=== PATIENT | male | born 1985 | race Two or more races ===

== ENCOUNTER 2022-07-14 12:51 | Emergency (ER) | payer MEDICAID, SELFPAY ==
--- NOTE | ~2022-07-14 | XR_ITS ---
EXAMINATION: XR HAND, LEFT CLINICAL INFORMATION: Pain, injury October base of thumb COMPARISON: None available. TECHNIQUE: PA, lateral, and oblique views of the left hand. FINDINGS: No visible acute fracture or dislocation. Alignment is anatomic. Joint spaces are maintained. Ulna negative variance. No erosions or soft tissue calcifications. XR/XR hand LT 2V IMPRESSION: No radiographic evidence of acute fracture or dislocation.
--- NOTE | ~2022-07-14 | XR_ITS ---
EXAMINATION: XR HAND, RIGHT CLINICAL INFORMATION: Thumb laceration. COMPARISON: None available. TECHNIQUE: PA, lateral, and oblique views of the right hand. FINDINGS: Lacerations and soft tissue thickening surrounding the first digit/thumb. Soft tissue thickening and possible laceration surrounding the distal second digit/index finger with a punctate radiopaque body in the ulnar soft tissues of the distal second phalanx, possibly a foreign body. Intra-articular fracture of the radial surface of the distal proximal first phalanx. Carpal rows are maintained. No significant degenerative changes. No erosions or chondrocalcinosis. XR/XR hand RT 2V IMPRESSION: 1. Lacerations and soft tissue thickening surrounding the first digit/thumb and second digit/index finger, with a punctate radiopaque body in the ulnar soft tissues of the distal second phalanx. 2. Intra-articular fracture of the radial surface of the distal aspect of the proximal first phalanx.
--- NOTE | 2022-07-14 13:10 | ED_ITS ---
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 Patient reports his hand got caught between the roopa and the tire and he had to pull it away causing a laceration to the thumb. Patient reports unable to straighten the thumb. No associated numbness, tingling. Unaware of last tetanus shot Related Data Previous Rx's Medication Instructions Recorded cephalexin 500 mg capsule 500 mg PO TID #21 caps 07/14/22 oxycodone 5 mg tablet 5 mg PO Q8H PRN pain #10 tabs 07/14/22 Allergies Allergy/AdvReac Type Severity Reaction Status Date / Time aspirin Allergy Hives Verified 07/14/22 13:34 Review of Systems Review of Systems: Yes all other systems are reviewed and are negative Constitutional: Constitutional: Reports no additional constitutional complain ts, Denies body ache(s), Denies chills, Denies fever(s), Denies headache(s) and Denies weakness Eyes: Eyes: Reports no additional eye complaints and Denies change in vision ENT: Reports system reviewed and no additional complaints, except as documented, Denies dizziness, Denies headache(s), Denies nasal congestion, Denies nasal discharge and Denies neck pain Cardiovascular: Cardiovascular: Reports no additional cardiovascular complaints, Denies chest pain, Denies leg edema and Denies dyspnea Respiratory: Respiratory: Reports no additional respiratory complaints, Denies cough and Denies dyspnea Gastrointestinal: Gastrointestinal: Reports no additional gastrointestinal complaints, Denies abdominal pain, Denies diarrhea, Denies nausea and Denies v omiting Genitourinary: Genitourinary: Denies urinary incontinence Musculoskeletal: Musculoskeletal: Reports no additional musculoskeletal complaints, Denies back pain, Reports arthralgias, Reports joint swelling, Reports limited range of motion, Denies neck pain, Denies numbness and Denies t ingling Integumentary/Breasts: Skin/Breast: Reports system reviewed and no additional complaints, except as docu, Denies rash and Reports wounds Neurologic: Reports system reviewed and no additional complaints, except as documented, Denies Abnormal speech present, Denies dizziness, Denies headache(s), Denies numbness, Denies tingling and Denies weakness [facility] Past Medical History Attestation statement: The following information was validated with the patient. Source: old records reviewed and nursing notes reviewed Social History Social History Advance Directives: No Advance Directives Information Provided: No Physical Exam Vital Signs: Vital Signs: Last Vital Signs Temp 98.0 F 07/14/22 13:28 Pulse 73 07/14/22 13:39 Resp 16 07/14/22 13:39 BP 105/69 07/14/22 13:39 Pulse Ox 98 07/14/22 13:39 O2 Del Method Room Air 07/14/22 13:39 BMI result Body Mass Index 26.6 Const: General: cooperative, healthy appearing, comfortable and no acute distress Orientation/consciousness: patient oriented x3 Limitations: no limitations HEENT: Head: Yes normal to inspection Ears: hearing grossly normal bilaterally General nose exam: Normal external nose present Face and sinus: Yes normal facial exam Mouth: Normal oral and palatal mucosa present Throat: Yes posterior oropharynx normal Eyes: General: appearance normal, both eyes and all related structures Pupils: Equal, round and reactive pupils present Neck: Neck: Yes normal visual inspection Chest: Chest palpation & inspection: normal inspection of the chest Resp: Effort & Inspection: normal respiratory effort Auscultation: clear to auscultation bilaterally Cardio: Rate: regular rate Rhythm: regular rhythm Peripheral pulses: Peripheral pulses 2+ throughout GI: Inspection: Yes normal to inspection Palpation (GI): Soft to palpation and nontender Auscultation: normal bowel sounds Back/Spine/Pelvis: Thoracic/Lumbar Spine: thoracic and lumbar spine normal to inspection Skin: General skin exam: no rashes or lesions noted Neuro: General: patient oriented x3, no focal motor deficits and normal sensation to monofilament Cranial nerves: Yes Equal, round and reactive pupils present Cognition (Neuro): normal cognition Speech: No Abnormal speech present Gait exam (Neuro): Normal gait present Motor exam (neuro): 5/5 motor strength present throughout Extrem: Other: Patient has the thumb held in partial flexion. He is unable to fully extend the digit. He does have a sensation which is intact distally. Approximately 5cm laceration Multiple abrasions noted over the right and left hand additionally. Over the left thenar there is some mild ecchymosis and swelling as well as tenderness with full range of motion. General: Yes normal to inspection Course Course Course Narrative: This wound was repaired with [place]. Unable to visualize tendon in the wound bed for repair. The wound was hand irrigated extensively with saline and betadine. After closure a non stick dressing, foam finger splint with forced extension and wrap were placed. Patient quite anxious during entire procedure. States has anxiety. Received 2mg ativan for procedure as unable to tolerate without. See procedure note. Medications Administered Discontinued Medications Generic Name Dose Route Start Last Admin Trade Name Freq PRN Reason Stop Dose Admin Cephalexin HCl 500 mg 07/14/22 15:01 07/14/22 15:17 Cephalexin 500 Mg Capsule PO 07/14/22 15:02 500 mg ONCE ONE Administration Diphtheria/Tetanus/Acell Pertussis 0.5 ml 07/14/22 13:05 07/14/22 13:47 Diphth,Pertus(Acell),Tet Adult 0.5 Ml Syringe IM 07/14/22 13:06 0.5 ml .ONCE ONE Administration Lidocaine HCl 20 ml 07/14/22 13:05 07/14/22 13:52 Lidocaine Hcl 1 % Mpf 5 Ml Vial SUBCUT 07/14/22 13:06 20 ml ONCE ONE Administration Lorazepam 2 mg 07/14/22 14:12 07/14/22 14:20 Lorazepam 1 Mg Tablet PO 07/14/22 14:13 2 mg ONCE ONE Administration Oxycodone HCl 5 mg 07/14/22 15:01 07/14/22 15:17 Oxycodone Hcl Immed Release 5 Mg Tablet PO 07/14/22 15:02 5 mg ONCE ONE Administration Medical Decision Making Medical Decision Making [facility] Narrative: 36-year-old male left-hand dominant here with right thumb laceration with inability to extend the digit and pain on exam. Also multiple abrasions over the hands. Some slight swelling, ecchymosis and tenderness the left thenar with full range of motion Tetanus is not up-to-date Will obtain x-rays, perform digital block, perform laceration repair Concern for tendon injury, fracture. Will need discussion with Orthopedics Differential Diagnosis Differential Diagnoses: The differential diagnosis associated with the presentation includes Fracture, laceration, tendon injury Consult Healthcare Provider Management of the patient was discussed with: Shuttlecock Assembler Fsyfruvajnw-Vu-Ljug PA-discussed the case with her. Recommend follow-up early next week in the office with hand surgeon Independent Interpretation I performed an independent interpretation of an: Plain X-Ray Interpretation: I independently reviewed the x-ray and agree with radiologist report Radiology Impression Discussion of test interpretation with radiology: I have reviewed the radiologist's reading. Radiologist Impression: [address] [address] XRay Report Signed Patient: Vadim Kurtz MR#: [id number] : 1985 Acct:[id number] Age/Sex: 36 / M ADM Date: 07/14/22 Loc: HO.ED Attending Dr: Ordering Physician: Kelly Rico NP Date of Service: 07/14/22 Procedure(s): XR hand RT 2V Accession Number(s): [id number] cc: Kelly Rico NP~ EXAMINATION: XR HAND, RIGHT CLINICAL INFORMATION: Thumb laceration.? COMPARISON: None available.? TECHNIQUE: PA, lateral, and oblique views of the right hand. FINDINGS: Lacerations and soft tissue thickening surrounding the first digit/thumb. Soft tissue thickening and possible laceration surrounding the distal second digit/index finger with a punctate radiopaque body in the ulnar soft tissues of the distal second phalanx, possibly a foreign body. Intra-articular fracture of the radial surface of the distal proximal first phalanx. Carpal rows are maintained. No significant degenerative changes. No erosions or chondrocalcinosis.? XR/XR hand RT 2V IMPRESSION: 1.? Lacerations and soft tissue thickening surrounding the first digit/thumb and second digit/index finger, with a punctate radiopaque body in the ulnar soft tissues of the distal second phalanx. 2.? Intra-articular fracture of the radial surface of the distal aspect of the proximal first phalanx. ? Launch?Image [address] [address] XRay Report Signed Patient: Vadim Kurtz MR#: [id number] : 1985 Acct:[id number] Age/Sex: 36 / M ADM Date: 07/14/22 Loc: HO.ED Attending Dr: Ordering Physician: Kelly Rico NP Date of Service: 07/14/22 Procedure(s): XR hand LT 2V Accession Number(s): [id number] cc: Kelly Rico NP~ EXAMINATION: XR HAND, LEFT CLINICAL INFORMATION: Pain, injury October base of thumb? COMPARISON: None available.? TECHNIQUE: PA, lateral, and oblique views of the left hand. FINDINGS: No visible acute fracture or dislocation. Alignment is anatomic. Joint spaces are maintained. Ulna negative variance. No erosions or soft tissue calcifications.? XR/XR hand LT 2V IMPRESSION: No radiographic evidence of acute fracture or dislocation. Procedures Laceration Laceration 1: Site: hand (right thumb) Side (If applicable): right Size (cm): 5 Description: irregular Depth: simple, single layer and involves tendon Amount of anesthesia used (mL): 6 Pre-repair: wound explored, irrigated extensively (2L NS and betadine) and deep structures intact Skin layer closed with: vicryl Size (cm): 5-0 Number of sutures: 13 Technique: simple, interrupted Nerve Block Nerve Block 1: Time out performed: Yes Local Anesthetic: lidocaine 1% Amount of anesthesia used (mL): 5 Side: right Nerve Blocks: digital Procedure Successful: Yes Patient Tolerated Procedure: well Complications: none Discharge Plan Discharge Clinical Impression: Laceration of finger, left, with tendon, Finger fracture, left Patient Disposition: Home, Self-Care Instructions: Finger Fracture (ED), Finger Laceration (ED) Additional Instructions: Sutures need to be removed in 7-10 days. However this will likely be done by the orthopedic team. Please call them Sunday to be seen in the office as you likely have a tendon injury of the thumb. Use the soft splint at all times to keep the finger in a straight position. You may was the area with soap and water but do not soak it in water. Start the antibiotics as soon as possible. Return for redness, swelling, drainage, fever. Las suturas deben retirarse en 7-10 d?as. Sin embargo, es probable que esto lo itzel el equipo ortop?dico. Ll?melos el lunes para que lo atiendan en la oficina, ya que es probable que tenga akbar lesi?n en el tend?n del pulgar. Utilice la f?corrine blanda en todo momento para mantener el dedo en akbar posici?n recta. Puede limpiar el ?joyce con agua y jab?n, antonina no la sumerja en agua. Comience los antibi?ticos piña pronto debbi sea posible. Regrese por enrojecimiento, hinchaz?n, drenaje, fiebre. Prescriptions: New cephalexin 500 mg capsule 500 mg PO TID Qty: 21 0RF oxycodone 5 mg tablet 5 mg PO Q8H PRN (Reason: pain) Qty: 10 0RF Rx Instructions: Partial Fill upon patient request. Referrals: [facility] [Provider Group] - 3 days Physician,Unknown J [Primary Care Provider] - 1 week Stand Alone Forms: Work/School Release Interventions: ED Discharge Assessment Last Done: 07/14/22 15:28 Discharge Date/Time: 07/14/22 15:29 Print Language: Welsh
[2022-07-14 13:28] VITALS: BP 105/69; PULSE 78; RESP 18; TEMP 36.7; O2SAT 98
[2022-07-14 13:39] VITALS: BP 105/69; PULSE 73; RESP 16; O2SAT 98; BMI 26.6
[2022-07-14] MEDS: Diphth,Pertus(ACell),Tet Adult 0.5 ML SYRINGE IM (13:47)
[2022-07-14] MEDS: Lidocaine HCl 1 % MPF 5 ML VIAL 20 ML SUBCUT (13:52)
[2022-07-14] MEDS: LORazepam 1 MG TABLET 2 MG PO (14:20)
[2022-07-14] MEDS: cephALEXin 500 MG CAPSULE PO (15:17)
[2022-07-14] MEDS: oxyCODONE HCl Immed Release 5 MG TABLET PO (15:17)
== END 2022-07-14 15:29 | disposition home or self-care (01) ==
PROVIDERS: Emergency Provider Emergency Medicine Emergency Medical Services
DX: S62.521A Displaced fracture of distal phalanx of right thumb, initial encounter for closed fracture (principal); S66.221A Laceration of extensor muscle, fascia and tendon of right thumb at wrist and hand level, initial encounter; S60.222A Contusion of left hand, initial encounter; S60.512A Abrasion of left hand, initial encounter; S60.511A Abrasion of right hand, initial encounter; W24.0XXA Contact with lifting devices, not elsewhere classified, initial encounter; F41.9 Anxiety disorder, unspecified; Y93.89 Activity, other specified; Y92.89 Other specified places as the place of occurrence of the external cause; Y99.9 Unspecified external cause status
CPT/HCPCS: 12042; 29130; 73120; 90471; 90715; 99283; 99284

== ENCOUNTER → 2022-07-19 11:26 | Outpatient (BNVA) | payer MEDICAID, SELFPAY | PROVIDERS: Visit Provider Physician Assistant | DX: S61.011A Laceration without foreign body of right thumb without damage to nail, initial encounter (principal) | CPT/HCPCS: 99202 ==

== ENCOUNTER 2022-07-20 06:56 | Day surgery (SDC) | payer MEDICAID, SELFPAY ==
[2022-07-20] VITALS (7 sets, daily range): BP systolic 97–138; BP diastolic 59–91; PULSE 53–67; RESP 16–17; TEMP 36.3–36.7; O2SAT 92–99; BMI 26.6
--- NOTE | ~2022-07-20 | FL_ITS ---
EXAMINATION: XR FLUOROSCOPY WITH IMAGES CLINICAL INFORMATION: Open reduction internal fixation COMPARISON: None available. TECHNIQUE: Fluoroscopy Supervised By: Dr. Arenas. Fluoroscopy Time: 37.5 seconds Cumulative Dose: 0.79 mGy. DAP: 0.048 Gycm2. Images: 8. FL/FL guidance in OR FINDINGS AND IMPRESSION: There appears to be soft tissue laceration around the proximal phalanx of the thumb and fracture involving the lateral phalangeal head. Images are obtained during placement of K wires and then screw fixation of the phalangeal head fracture. There is anatomic reduction.
--- NOTE | 2022-07-20 07:56 | P.OP_ITS ---
Operative Note Operative Note Date of Service: 07/20/22 Narrative: Operative Note Narrative: Preop diagnosis: 1. Right thumb open fracture of the proximal phalanx involving the distal articular surface 2. Right thumb extensor tendon laceration Postop diagnosis: Same Procedure: 1. Right thumb proximal phalanx open reduction internal fixation 2. Right thumb I and D of open fracture of the proximal phalanx 3. Right thumb extensor tendon repair Surgeon: Shanique Arenas MD Anesthesia: General Anesthesia Findings: Nearly circumferential laceration extending from the dorsal radial aspect of the thumb over the proximal phalanx passing radially and then over the volar aspect of the thumb across the IP flexion crease. No gross purulence. Open intra-articular fracture of the proximal phalanx at the distal articular surface. Oblique laceration of the extensor tendon over the proximal phalanx Laceration of the flexor tendon sheath at about the IP joint. The FPL tendon appeared to be intact. The radial digital nerve appeared to be at least partially intact, that is at least 1 of the branches appeared to be intact. Implants: 10 mm AcuTrak II micro headless compression screw Tourniquet time: 90 minutes EBL: 5.0 ml Specimen: Cultures sent from open fracture Drains: None Complications: None Disposition: Brought to the recovery room in stable condition Plan: Follow-up in 1 week for wound check, and to check cultures. He can be placed back into a splint at that time. No active flexion and extension of the IP joint until tendon healing please Anticipate removal of sutures and new radiographs at 2 weeks, and placement in a short-arm thumb spica cast until 6 weeks postop Indications: The patient is a 36 year old man with a crush injury to his right thumb resulting in an open fracture of the proximal phalanx at the distal articu lar surface as well as an extensor tendon laceration. . The risks and benefits of operative treatment, including but not limited to risk of damage to blood vessels, nerves, tendons, infection, recurrence, persistent pain or numbness, incomplete resolution of preoperative symptoms, or need for further surgery were discussed with the patient and they wished to proceed with surgery. Procedure: Once consent was obtained patient was brought back to the operating suite and placed in the operating table in a supine position. . Perioperative antibiotics and anesthesia was administered by the anesthesia team. A tourniquet was applied to the proximal aspect of the right upper extremity and the limb was prepped and draped in a standard surgical fashion. The limb was elevated exsanguinated with Esmarch bandage and the tourniquet inflated to 250 mm of mercury for a total tourniquet time of 90 minutes. The sutures were removed from the right thumb. We found was a nearly circumferential laceration extending across the dorsum of the proximal phalanx around the radial side and then across the volar aspect of the IP flexion crease. He had an oblique laceration of the extensor tendon over the proximal phalanx. There was also an open intra-articular fracture of the proximal phalanx at the IP joint. On the volar side the FPL tendon sheath was lacerated but the FPL tendon itself appeared to be intact. I saw at least 1 branch of the radial digital nerve crossing the wound. The the wound appeared to be grossly clean of debris. The skin edges were carefully debrided using iris scissors and a 15. Blade. After obtaining cultures from the fracture site, The wound was copiously irrigated with normal saline. I used a small curette to carefully debride the fracture edges of any hematoma. Again the wound was copiously irrigated. And open reduction and internal fixation of the intra-articular fracture of the proximal phalanx was then performed. The mini C-arm was used to assess fracture reduction and placement of all implants. I made a small longitudinal incision just distal to the IP joint on the radial side of the thumb. I then passed a patient guidewire from the AcuTrak 2 micro set. This was passed retrograde and obliquely through the radial corner of the proximal phalanx fragment. This was then advanced retrograde and obliquely across the fracture site and into the shaft of the proximal phalanx. Once satisfied with our reduction both visually and radiographically I then used the short fat Reamer to open up the near cortex. I then used a long narrow AcuTrak 2 mini Reamer to ream over the guidewire across the fracture site. I then placed an 11 mm AcuTrak to micro headless compression screw across her fracture. I was satisfied with our reduction and placement of this screw on all radiographic images. Final images were obtained. I then turned my attention to the extensor tendon. I repaired the extensor tendon using 3-0 Ethibond and 4-0 Vicryl suture. I then copiously irrigated both the dorsal aspect of wound and then also the volar aspect of the wound including the flexor tendon within the tendon sheath. At this point the tourniquet was deflated and hemostasis obtained with a brief period of local pressure . The wound was copiously irrigated with normal saline. The skin edges were reapproximated with 4-0 nylon suture. The a digit al block was performed using some 0.5% plain ropivacaine for postop pain control and a sterile dressing and short-arm thumb spica splint was applied The patient appears to have tolerated the procedure well and with no complications. All digits were well vascularized conclusion of the case.
--- NOTE | 2022-07-20 10:21 | HO.ANESPROP2 ---
HPI - Anesthesia Eval Consult details Narrative: Iand D right thumb PMFSH Active Problems Active Problems: All Active Problems (Updated 07/19/22 @ 14:25 by Lexy Shah PA-C) Laceration of thumb, right (Acute) Laceration of left thumb (Acute) Family History Family history of problems with anesthesia: No Surgical History History of Problems with Anesthesia: No Social History Social History (Updated 07/19/22 @ 11:40 by Lexy Shah PA-C) Alcohol intake: never Patient Tobacco Use Status: Never used Tobacco Second Hand Smoke Exposure: No Use of substances other than those prescribed or required for medical reasons: Yes 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: Daily Are you DNR?: No Advance Directives: No Advance Directives Information Provided: Yes Advance Directives on File: No Current occupational status: unemployed 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, 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 Meds Allergies Allergy/AdvReac Type Severity Reaction Status Date / Time aspirin Allergy Hives Verified 07/19/22 11:31 Exam Exam Date and Time: July 20, 2022 1021 Height,Weight and Vital Signs: Height 5 ft 9 in Weight 81.647 kg Last Vital Signs Temp 98.0 F 07/20/22 08:18 Pulse 67 07/20/22 08:18 Resp 16 07/20/22 08:18 BP 115/72 07/20/22 08:18 Pulse Ox 99 07/20/22 08:18 O2 Del Method Room Air 07/20/22 08:18 Airway Mallampati Class: II (arge lower mandible wth overbite) TM Dist: >3cm Neck ROM: Full Loose/Missing/Broken Teeth: No Heart: rr Lungs: cta Assessment and Plan Assessment Anesthesia Assessment: Anesthesia Plan Discussed and Chart Reviewed Final Anesthetic Review Family History of Problems with Anesthesia: No History of Problems with Anesthesia: No NPO: Yes ASA Class: II Final Preanesthetic Review: No Changes in Pt Med Stat, Meds/Allgs Chart Reviewed, Consent Obtained/Reviewed and Anes Risks/Benef Reviewed Patient Risk: Low Procedure Risk: Low Anesthetic Plan Anesthetic Plan: GA and Agree w/ Assess. and Plan Disposition: Standard PACU
== END 2022-07-20 14:00 | disposition home or self-care (01) ==
PROVIDERS: Visit Provider Orthopaedic Surgery
PROC: (CPT 26746; principal; 2022-07-20 09:10)
PROC: (CPT 26746; 2022-07-20 09:10)
DX: S62.511B Displaced fracture of proximal phalanx of right thumb, initial encounter for open fracture (principal); S66.221A Laceration of extensor muscle, fascia and tendon of right thumb at wrist and hand level, initial encounter; S66.021A Laceration of long flexor muscle, fascia and tendon of right thumb at wrist and hand level, initial encounter; X58.XXXA Exposure to other specified factors, initial encounter; Y93.89 Activity, other specified; Y92.9 Unspecified place or not applicable; Y99.9 Unspecified external cause status
CPT/HCPCS: 26746; 26418; 87070; 87205; C1713; J0690; J1100; J2250; J2405; J3010

== ENCOUNTER → 2022-07-26 11:01 | Outpatient (BNVA) | payer MEDICAID, SELFPAY | PROVIDERS: Visit Provider Orthopaedic Surgery ==

== ENCOUNTER 2022-08-02 11:01 | Outpatient (REF) | payer MEDICAID, SELFPAY ==
--- NOTE | ~2022-08-02 | XR_ITS ---
EXAMINATION: XR HAND, RIGHT CLINICAL INFORMATION: Right hand pain COMPARISON: 07/14/2022 TECHNIQUE: PA, lateral, and oblique views of the right hand. FINDINGS: Postoperative changes. Surgical screw involving the first proximal phalanx affixing likely oriented fracture in satisfactory alignment with fracture line still lucent. There is surrounding soft tissue swelling. Remaining osseous structures are grossly unremarkable. XR/XR hand RT min 3V IMPRESSION: Postoperative changes of the first proximal phalanx affixing likely oriented fracture in satisfactory alignment.
== END 2022-08-02 11:02 | disposition home or self-care (01) ==
LOC: HO.HOSX 11:01
PROVIDERS: Visit Provider Physician Assistant
DX: S62.511D Displaced fracture of proximal phalanx of right thumb, subsequent encounter for fracture with routine healing (principal); S66.221D Laceration of extensor muscle, fascia and tendon of right thumb at wrist and hand level, subsequent encounter
CPT/HCPCS: 29085; 73130

== ENCOUNTER 2022-08-30 08:33 | Outpatient (REF) | payer MEDICAID, SELFPAY ==
--- NOTE | ~2022-08-30 | XR_ITS ---
EXAMINATION: XR HAND, RIGHT CLINICAL INFORMATION: Right hand pain. COMPARISON: 08/02/2022 and 07/14/2022. TECHNIQUE: PA, lateral, and oblique views of the right hand. FINDINGS: There is osteopenia of the 1st phalanx likely related to disuse. A screw is seen for fixation of previously noted intra-articular fracture distal aspect of the 1st proximal phalanx. Due to osteopenia, fracture lines are difficult to identify. No displaced fracture fragments are seen. There is some periosteal reaction present. Mild soft tissue swelling is present. There appear to be a few erosions or subchondral cysts about the 1st metacarpal head. There is some mild degenerative change of the 1st carpometacarpal joint with question subchondral cyst or small erosions. There is a small erosion seen involving the head of the 3rd metacarpal. XR/XR hand RT min 3V IMPRESSION: Osteopenia of the 1st finger. Screw in place head of the 1st proximal phalanx with no change in alignment of fracture fragments.
== END 2022-08-30 08:34 | disposition home or self-care (01) ==
LOC: HO.HOSX 08:33
PROVIDERS: Visit Provider Orthopaedic Surgery
DX: S66.221D Laceration of extensor muscle, fascia and tendon of right thumb at wrist and hand level, subsequent encounter (principal); S66.222D Laceration of extensor muscle, fascia and tendon of left thumb at wrist and hand level, subsequent encounter; S62.511B Displaced fracture of proximal phalanx of right thumb, initial encounter for open fracture; S62.512B Displaced fracture of proximal phalanx of left thumb, initial encounter for open fracture
CPT/HCPCS: 73130; 99212; J1020

== ENCOUNTER 2022-10-11 09:36 | Outpatient (REF) | payer MEDICAID, SELFPAY | END 2022-10-11 09:37 | disposition home or self-care (01) | LOC: HO.HOSX 09:36 | PROVIDERS: Visit Provider Orthopaedic Surgery | DX: Z13.89 Encounter for screening for other disorder (principal) ==

== ENCOUNTER 2024-01-16 17:00 | Emergency (ER) | payer MEDICAID, SELFPAY ==
--- NOTE | 2024-01-16 17:42 | ED.GENADULT ---
HPI - General Adult General Chief complaint: Ear Problems Stated complaint: ear pain Source: patient Mode of arrival: ambulatory Limitations: no limitations History of Present Illness ED Provider: nirmala PEÑA narrative: Patient is a 38-year-old male presenting to the ED with complaint of right ear pain for the past 5 days. Denies fevers. Denies drainage. Denies any other complaints. complaint: right ear pain Onset (ago): day(s) Severity: severe Quality: aching Associated symptoms: denies other symptoms Treatments prior to arrival: none Related Data Previous Rx's ?Medication ?Instructions ?Recorded acetaminophen 325 mg capsule 650 mg (2 x 325 mg) PO Q6H PRN 01/16/24 (Tylenol) pain #14 caps amoxicillin 875 mg tablet 875 mg PO BID #14 tabs 01/16/24 Allergies Allergy/AdvReac Type Severity Reaction Status Date / Time aspirin Allergy Hives Verified 01/16/24 17:45 Review of Systems Review of Systems: As per HPI Yes all other systems are reviewed and are negative Constitutional: Constitutional: Reports as per HPI [facility] Social History Social History Alcohol intake: never Patient Tobacco Use Status: Never used Tobacco Second Hand Smoke Exposure: No Substance Use Type: Marijuana Current occupational status: unemployed 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 Blood pressure normal. Heart rate normal. Respiratory rate normal. Temperature normal. Oxygen saturation normal. Const General: cooperative, healthy appearing and no acute distress Orientation/consciousness: oriented to person, oriented to place, oriented to time and patient oriented x3 Limitations: no limitations HENMT Head: Yes normocephalic and Yes atraumatic Ears: external ears normal, TM normal on the left, EAC's normal, mastoids normal bilaterally, no periauricular adenopathy and TM abnormal bulging on the right, wth effusion purulent on the right and erythematous on the right General nose exam: Normal external nose present Face and sinus: Yes face symmetric Mouth: oropharynx normal and moist mucous membranes Throat: Yes uvula midline Eyes Pupils: Equal, round and reactive pupils present Neck Neck: Yes normal visual inspection and Yes supple Resp Effort & Inspection: normal respiratory effort and able to speak in complete sentences Auscultation: clear to auscultation bilaterally Cardio Rate: regular rate Rhythm: regular rhythm Heart sounds: S1 normal heart sound present and S2 normal heart sound present GI Palpation (GI): Soft to palpation and nontender Auscultation: normoactive bowel sounds General: Yes no CVA tenderness Back/Spine/Pelvis Back: no CVA tenderness Skin General skin exam: elasticity normal and turgor normal Neuro General: oriented to person, oriented to place, oriented to time, patient oriented x3, moves all extremities, no focal motor deficits and CN's II-XI intact bilaterally Cranial nerves: Yes Equal, round and reactive pupils present Cognition (Neuro): normal cognition Extrem General: Yes full ROM, Yes no pedal edema and Yes no calf tenderness Psych Mental Status: mental status grossly normal Affect: normal affect Thought process: Normal thought process present Medical Decision Making Medical Decision Making MDM Narrative: Patient is a 38-year-old male presenting to the ED with complaint of right ear pain for the past 5 days. On exam patient is awake, A+Ox3, VS WNL, afebrile, normal neurological exam without focal deficits, physical exam findings as above. Given reported symptoms and physical exam findings, initial differential includes otitis media, otitis externa. Do not suspect mastoiditis. Physical exam consistent with AOM, will treat with amoxicillin, patient also requesting prescription for Tylenol. Follow-up with PCP. Return precautions discussed. Patient verbalized understanding of and agreement with plan. Differential Diagnosis Differential Diagnoses: The differential diagnosis associated with the presentation includes As per MDM. External Record Review External record reviewed: Inpatient record, Office record and Outpatient record Prescription Management I considered prescription management with: Pain Medication and Antibiotic Discharge Plan Discharge Clinical Impression: Otitis media Qualifiers: Laterality: right Patient Disposition: Home, Self-Care Instructions: Ear Infection (ED) Additional Instructions: You were evaluated in the emergency department today for ear pain. Your evaluation suggests that your pain is due to an ear infection. Please take your prescribed antibiotics as directed for the full course of the medication. We recommend that you take 650mg Tylenol or 600mg ibuprofen every 6 hours as needed for pain. Please follow up with your primary care provider within two days. Return to the emergency department if you experience hearing loss, discharge from your ear, headaches, fevers, recurrent vomiting, or any other concerning symptoms. Prescriptions: New amoxicillin 875 mg tablet 875 mg PO BID Qty: 14 0RF acetaminophen [Tylenol] 325 mg capsule 650 mg PO Q6H PRN (Reason: pain) Qty: 14 0RF Print Language: Danish
[2024-01-16 17:44] VITALS: BP 114/78; PULSE 74; RESP 18; TEMP 36.8; O2SAT 96; BMI 29.5
== END 2024-01-16 17:52 | disposition home or self-care (01) ==
LOC: HO.ED 17:51
PROVIDERS: Emergency Provider Internal Medicine
DX: H66.91 Otitis media, unspecified, right ear (principal); H92.01 Otalgia, right ear
CPT/HCPCS: 99281; 99283

== ENCOUNTER 2024-10-08 16:54 | Emergency (ER) | payer MEDICAID, SELFPAY ==
--- NOTE | 2024-10-08 17:24 | ED_ITS ---
HPI - Eye Problem General Chief complaint: Eye Problems Stated complaint: left eye irritation Related Data Previous Rx's ?Medication ?Instructions ?Recorded acetaminophen 325 mg capsule 650 mg (2 x 325 mg) PO Q6 H PRN 01/16/24 (Tylenol) pain #14 caps amoxicillin 875 mg tablet 875 mg PO BID #14 tabs 01/15 Allergies Allergy/AdvReac Type Severity Reaction Status Date / Time aspirin Allergy Hives Verified 10/08/24 17:29 [facility] Social History Social History Alcohol intake: never Patient Tobacco Use Status: Never used Tobacco Second Hand Smoke Exposure: No Substance Use Type: Marijuana Advance Directives: No Advance Directives Information Provided: No 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 RME assessment and note performed by: Sudarshan Ambrose PA-C 39 yo M here for eye pain. 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 Has flushed with water without effect. PE: mild conjuctival erythema Plan: visual acuity Discharge Plan Discharge Clinical Impression: Eye pain Patient Disposition: Left W/O Completing Treatment Prescriptions: No Action amoxicillin 875 mg tablet 875 mg PO BID Qty: 14 0RF acetaminophen [Tylenol] 325 mg capsule 650 mg PO Q6H PRN (Reason: pain) Qty: 14 0RF Discharge Date/Time: 10/08/24 19:19
[2024-10-08 17:25] VITALS: BP 106/58; PULSE 93; RESP 16; TEMP 36.5; O2SAT 95; BMI 28.8
--- OUTSIDE RECORDS SUMMARY | 2024-10-08 18:59 | XMS_ITS ---
Author Name [facility] Organization Unknown Results Test Name/Text Value Interpretation Date Range Source Albumin/Glob SerPl 1.4 Ratio Normal 07/20/2024 1 - 1.8 [facility] Creat SerPl-mCnc 1.0 mg/dL Normal 07/20/2024 0.5 - 1.3 HH CCT CO2 SerPl-sCnc 25.0 mmol/L Normal 07/20/2024 22 - 33 HH CCT Bilirub SerPl-mCnc 0.6 mg/dL Normal 07/20/2024 0.2 - 1 [facility] ALP SerPl-cCnc 109.0 U/L Normal 07/20/2024 45 - 128 [facility] T Globulin Ser Calc-mCnc 3.2 g/dL Normal 07/20/2024 1.5 - 3.9 [facility] Anion Gap Bld-sCnc 12.0 Normal 07/20/2024 4 - 16 [facility] AST SerPl-cCnc 31.0 U/L Normal 07/20/2024 10 - 55 [facility] T Calcium SerPl-mCnc 9.6 mg/dL Normal 07/20/2024 8.7 - 10.5 [facility] Potassium SerPl-sCnc 3.8 mmol/L Normal 07/20/2024 3.4 - 5 .3 [facility] BUN SerPl-mCnc 15.0 mg/dL Normal 07/20/2024 8 - [address] Albumin SerPl-mCnc 4.5 g/dL Normal 07/20/2024 3.5 - 5 [facility] Glucose SerPl-mCnc 120.0 mg/dL Above high normal 07/20/2024 65 - 99 [facility] Chloride SerPl-sCnc 101.0 mmol/L Normal 07/20/2024 98 - 1 07 [facility] ALT SerPl-cCnc 27.0 U/L Normal 07/20/2024 10 - 55 [facility] T Sodium SerPl-sCnc 138.0 mmol/L Normal 07/20/2024 136 - 14 5 [facility] BUN/Creat SerPl 15.0 Ratio Normal 07/20/2024 10 - 25 HH CCT Prot SerPl-mCnc 7.7 g/dL Normal 07/20/2024 6.3 - 8.[address] GFR/BSA.pred SerPlBld [id number] >90.0 Normal 07/20/2024 59 - H[facility]CT MCHC RBC Auto-mCnc 33.5 g/dL Normal 07/19/2024 30 - 36 [facility] Platelet num Bld Auto 344.0 Thou/uL Normal 07/19/2024 150 - 450 [facility] Monocytes num Bld Auto 0.89 Thou/uL Normal 07/19/2024 0.2 - 1.5 [facility] WBC num Bld Auto 12.3 Thou/uL Above high normal 07/19/2024 4 - 11 [facility] Basophils/leuk NFr Bld Auto 0.5 % Normal 07/19/2024 [facility] Neutrophils num Bld Auto 8.18 Thou/uL Above high normal 07/19/2024 2 - 7.5 [facility] Basophils num Bld Auto 0.06 Thou/uL Normal 07/19/2024 0 - 0.2 [facility] RBC num Bld Auto 5.36 Mil/uL Normal 07/19/2024 4.5 - 6.2 [facility] Lymphocytes num Bld Auto 3.11 Thou/uL Normal 07/19/2024 1.5 - 4.5 [facility] PMV Bld Auto 9.9 fL Normal 07/19/2024 7.5 - 12.5 [facility] RDW RBC Auto-Rto 14.0 % Normal 07/19/2024 11.5 - 14.5 [facility] Hgb Bld-mCnc 16.4 g/dL Normal 07/19/2024 13 - 17.7 [facility] Eosinophil num Bld Auto 0.06 Thou/uL Normal 07/19/2024 0 - 0.7 [facility] MCH RBC Qn Auto 30.6 pg Normal 07/19/2024 26 - [address] Imm Granulocytes/leuk NFr Bld Auto 0.3 % Normal 07/19/2024 [facility] Neutrophils/leuk NFr Bld Auto 66.3 % Normal 07/19/2024 [facility] Lymphocytes/leuk NFr Bld Auto 25.2 % Normal 07/19/2024 [facility] Hct VFr Bld Auto 49.0 % Normal 07/19/2024 39 - 54 HH CCT MCV RBC Auto 91.0 fL Normal 07/19/2024 80 - 100 [facility] Imm Granulocytes num Bld Auto 0.04 Thou/uL Normal 07/19/2024 0 - 0.1 [facility] Monocytes/leuk NFr Bld Auto 7.2 % Normal 07/19/2024 [facility] Eosinophil/leuk NFr Bld Auto 0.5 % Normal 07/19/2024 CCT 2019-nCOV RNA Not Detected Normal 01/22/2024 CCT Specimen source XXX Nasopharyngeal Normal [facility] Throat Ql ZAINAB+probe Not Detected Normal 01/22/2024 [facility] Encounters Encounter Type Encounter Reason Primary Diagnosis Location Date Emergency Cutaneous abscess of neck Cutaneous abscess of neck [employer] [facility] [employer] [facility] 07/19/2024 Emergency Other specified disorders of teeth and supporting structures Other specified disorders of teeth and supporting structures [employer] [facility] [employer] [facility] 07/01/2024 Emergency Viral infection, unspecified Viral infection, unspecified [employer] [facility] [employer] [facility] 01/22/2024 Emergency Effusion, unspecified joint [facility] 07/26/2021 Care Team Organization Name Specialty Phone Email Start Date End Da te [facility] 07/03/2024 [facility] 01/24/2024 050 12/2024 [facility] 08/14/2023 [facility] 07/21/2022 [facility] [place], Primary Care 05/08/20222023 [facility] 07/26/2021 05/0 12/2024 [facility] 07/26/202107/15
--- NOTE | 2024-10-08 19:01 | PC.NURSE ---
pt stormed out c/o wait time. opened curtain aggressively and walked briskly out of dept. unable to be deescalated by rito Rai. left department with steady ambulation.
== END 2024-10-08 19:19 | disposition left against medical advice (07) ==
PROVIDERS: Emergency Provider Emergency Medicine
DX: H57.12 Ocular pain, left eye (principal)
CPT/HCPCS: 99281